=== PATIENT | female | born 1980 | race Caucasian/White ===

== ENCOUNTER 2019-02-26 19:02 | Emergency (ER) | payer OTHER ==
--- NOTE | 2019-02-26 22:00 | ED ---
General Adult HPI - General Chief complaint: Abdominal Pain Stated complaint: 17 wks preg/no movement Time Seen by Provider: 02/26/19 21:16 Source: patient Mode of arrival: ambulatory Limitations: no limitations - History of Present Illness Initial comments: Allison is a female who presents the emergency department for evaluation of early . Patient reports that she had a normal menses in September, a menses lasting only 3 days in October and a menses lasting only 3 days in November, on January 04 she had a positive test and was seen at a clinic and had blood work done confirming her . At that time she didn't have dating done. Patient reports that she has moved up here to [facility] from [facility] during a divorce and has been unable to establish primary care or [employer] care. Patient states that because her last normal period was in the members she thought she may be up to 17 weeks and hasn't felt much movement yet and just wanted to have the baby checked on. She reports she does have a little bit of pulling sensation that is worse when she is up and walking around and worse with working however no significant pain no vaginal bleeding discharge, no dysuria or hematuria. Patient states that she didn't know where to go to establish OB care so she came to the ER to have an ultrasou nd to confirm that the baby was still okay and to be referred to OB. - Related Data Home Medications Medication Instructions Recorded Confirmed Joc-Esnd-Qaurv Acid 1 cap PO DAILY 02/26/19 02/26/19 [-U Capsule (formulary)] Allergies Allergy/AdvReac Type Severity Reaction Status Date / Time aspirin Allergy Rash/Hives Verified 02/26/19 21:20 sulfamethoxazole Allergy Rash/Hives Verified 02/26/19 21:20 [From Bactrim] trimethoprim [From Bactrim] Allergy Rash/Hives Verified 02/26/19 21:20 Review of Systems ROS Statement: Those systems with pertinent positive or pertinent negative responses have been documented in the HPI. ROS Other: All systems not noted in ROS Statement are negative. Past Medical History Past Medical History: No Reported History History of Any Multi-Drug Resistant Organisms: None Reported Additional Past Surgical History / Comment(s): Hernia Past Psychological History: Depression Smoking Status: Current every day smoker Past Alcohol Use History: None Reported Past Drug Use History: None Reported General Exam - General Exam Comments Initial Comments: Physical Exam GENERAL: Patient is well-developed and well-nourished. Patient is nontoxic and well- hydrated and is in no distress. HENT: Normocephalic, Atraumatic. EYES: PERRL, EOMI PULMONARY: Unlabored respirations. CARDIOVASCULAR: RRR ABDOMEN: Soft and nontender with normal bowel sounds. Bedside ultrasound reveals an active fetus, HR 1150s SKIN: Skin is clear with no lesions or rashes and otherwise unremarkable. : Deferred NEUROLOGIC: Patient is alert and oriented x3. Moving all extremities spontaneously MUSCULOSKELETAL: Normal extremities with adequate strength and full range of motion. No lower extremity swelling or edema. No calf tenderness. PSYCHIATRIC: Normal psychiatric evaluation. Limitations: no limitations Limitations: no limitations Course Vital Signs 02/26/19 19:08 Temperature 97.8 F Pulse Rate 104 H Respiratory 20 Rate Blood Pressure 145/98 O2 Sat by Pulse 99 Oximetry Medical Decision Making - Medical Decision Making She was seen and evaluated history was obtained from patient this is a 38-year-old female in her first or early second trimester of who came to the ER because he has recently moved to this area, she does not have primary care, she does not have OB care, she is not felt much movement and wanted to have the fetus checked on and be referred to OB for outpatient follow-up. The patient decline labs are urinalysis she's not having any acute complain at the time of evaluation As ago exam was unremarkable Bedside ultrasound did reveal a single intrauterine fetus that was active had a heart rate in the 150s Patient felt reassured by bedside ultrasound would like to be discharged with outpatient follow-up with OB All questions pertaining to care answered, return parameters discussed, patient referred to OB for out patient follow up. - Lab Data Lab Results 02/26/19 Range/Units 21:25 Urine Color Light Yellow Urine Appearance Cloudy H (Clear) Urine pH 6.0 (5.0-8.0) Ur Specific [place] 1.011 (1.001-1.035) Urine Protein Negative (Negative) Urine Glucose (UA) Negative (Negative) Urine Ketones Negative (Negative) Urine Blood Negative (Negative) Urine Nitrite Negative (Negative) Urine Bilirubin Negative (Negative) Urine Urobilinogen <2.0 (<2.0) mg/dL Ur Leukocyte Esterase Negative (Negative) Urine WBC 9 H (0-5) /hpf Ur Squamous Epith Cells 2 (0-4) /hpf Urine Mucus Rare H (None) /hpf Disposition Clinical Impression: at early stage Disposition: HOME SELF-CARE Condition: Stable Instructions (If sedation given, give patient instructions): Abdominal Pain in (ED) Is patient prescribed a controlled substance at d/c from ED?: No Referrals: None,Stated [Primary Care Provider] - 1-2 days Adolph Wade MD [STAFF PHYSICIAN] - 1-2 days [facility] [employer] [Provider Group] - 1-2 days
[2019-02-26 22:02] LABS: Appearance,Urine Cloudy (Clear); Bilirubin,Urine Negative (Negative); Blood,Urine Negative (Negative); Color,Urine Light Yellow; Glucose,Urine (UA) Negative (Negative); Ketones,Urine Negative (Negative); Leukocyte Esterase,Urine Negative (Negative); Mucus,Urine Rare /hpf; Nitrite,Urine Negative (Negative); Protein,Urine Negative (Negative); Specific Gravity,Urine 1.011 (1.001-1.035); Squamous Epithelial Cell,Urine 2 /hpf (0-4); Urobilinogen,Urine <2.0 mg/dL (<2.0); WBC,Urine 9 /hpf (0-5)
[2019-02-26 22:19] VITALS: BP 117/69; PULSE 98; RESP 18; TEMP 97
== END 2019-02-26 22:18 | disposition home or self-care (01) ==
LOC: EC 19:02
DX: Z34.02 Encounter for supervision of normal first pregnancy, second trimester (principal); O99.332 Smoking (tobacco) complicating pregnancy, second trimester; F17.200 Nicotine dependence, unspecified, uncomplicated; Z88.2 Allergy status to sulfonamides; Z88.6 Allergy status to analgesic agent; Z3A.17 17 weeks gestation of pregnancy
CPT/HCPCS: 81001; 99284